=== PATIENT | male | born 1955 | race Caucasian/White ===

== ENCOUNTER → 2019-07-14 09:46 | Outpatient (BNVA) | payer MEDICARE, OTHER, SELFPAY | PROVIDERS: Family Provider Nurse Practitioner Family; PCP Nurse Practitioner Family; Visit Provider Nurse Practitioner Family | DX: I10 Essential (primary) hypertension (principal); E78.5 Hyperlipidemia, unspecified; Z51.81 Encounter for therapeutic drug level monitoring | CPT/HCPCS: 80053; 80061 ==

== ENCOUNTER → 2020-02-02 10:25 | Outpatient (BNVA) | payer MEDICARE, OTHER, SELFPAY | PROVIDERS: Family Provider Nurse Practitioner Family; PCP Nurse Practitioner Family; Visit Provider Nurse Practitioner Family | DX: I10 Essential (primary) hypertension (principal); E78.5 Hyperlipidemia, unspecified; Z87.39 Personal history of other diseases of the musculoskeletal system and connective tissue; Z79.899 Other long term (current) drug therapy | CPT/HCPCS: 80053; 80061 ==

== ENCOUNTER → 2020-02-17 11:19 | Outpatient (BNVA) | payer MEDICARE, OTHER, SELFPAY | PROVIDERS: Family Provider Nurse Practitioner Family; PCP Nurse Practitioner Family; Visit Provider Nurse Practitioner Family | DX: R10.11 Right upper quadrant pain (principal) | CPT/HCPCS: 81000 ==

== ENCOUNTER 2020-02-25 11:54 | Outpatient (CLI) | payer MEDICARE, OTHER, SELFPAY ==
[2020-02-25] MEDS: iohexol 300 mg/mL 100 mL Btl IV (13:25)
[2020-02-25] MEDS: iohexol 300 mg/mL 50 mL Btl PO (13:26)
--- NOTE | 2020-02-25 13:30 | CT_ITS ---
WS: [id number] CT ABDOMEN CONTRAST TECHNIQUE: Contrast enhanced CT of the abdomen with coronal and sagittal reformatted images. CLINICAL INFORMATION: Abdominal pain COMPARISON: None. DLP: 725.[address] scans at [facility] use at least one of these dose optimization techniques: automat ed exposure control; mA and/or kV adjustment per patient size (includes targeted exams where dose is matched to clinical indication); or iterative reconstruction. FINDINGS: Mild diffuse fatty infiltration of the liver. Multiple low-attenuation lesions compatible with hepati c cysts. Some are too small to characterize. Additional cavernous hemangioma in the tip of the right hepatic lobe. Normal portal vein and slight splenic vein. Normal spleen. Splenic granulomas. Normal p ancreas. Gallbladder is contracted with wall enhancement.Recommend further evaluation with ultrasound. Promine nt common bile duct measuring 8 mm. Peripheral enhancement along the proximal common bile duct. Recom mend further evaluation with MRCP to assess for choledocholithiasis or bile duct lesion. Normal GE junction. Lung bases are well aerated. Adrenal glands are normal. Normal renal parenchymal enhancement. No hydronephrosis. Normal caliber abdominal aorta. Aortic calcification. Tiny fat-conta ining umbilical hernia. CT/CT abdomen w con* [id number] IMPRESSION: 1. Multiple low-attenuation lesions in both hepatic lobes most consistent with hepatic cysts. Additional cavernous hemangioma in the tip of the right hepatic lobe. Some lesions are too small to characterize. 2. Gallbladder is contracted with wall enhancement. Recommend further evaluati on with ultrasound. 3. Mild prominence of the common bile duct measuring 8 and enhancement along t he proximal common bile duct. Recommend further evaluation with MRCP to assess for choledocholithiasis or obstructing lesion. 4. Normal caliber abdominal aorta. 5. No other significant findings.
== END 2020-02-25 11:55 | disposition home or self-care (01) ==
LOC: RADWPI 12:02
PROVIDERS: Family Provider Nurse Practitioner Family; PCP Nurse Practitioner Family; Visit Provider Nurse Practitioner Family
DX: R10.11 Right upper quadrant pain (principal); K76.9 Liver disease, unspecified; K76.89 Other specified diseases of liver; D18.09 Hemangioma of other sites
CPT/HCPCS: 74160; Q9967

== ENCOUNTER 2020-03-12 06:59 | Outpatient (CLI) | payer MEDICARE, OTHER, SELFPAY ==
--- NOTE | 2020-03-12 07:15 | US_ITS ---
WS: [id number] RIGHT UPPER QUADRANT ULTRASOUND HISTORY: Abnormal gallbladder on CT. COMPARISON: 02/25/2020 Liver: 15.2 cm in length. Normal size liver. Previously described hepatic cysts were much better visu alized by CT. Liver hemangioma is not seen by ultrasound. No bile duct dilatation or solid mass. Gallbladder: Slightly contracted. Mild gallbladder wall thickening without pericholecystic fluid. No stones. Gallbladder wall 4 mm. CBD: 0.6 cm Pancreas: Normal size and echogenicity. Right kidney: 9.7 cm in length. Normal size and echogenicity. No hydronephrosis or mass. Aorta and IVC: Unremarkable abdominal aorta and IVC. No ascites. US/US gall bladder [id number] IMPRESSION: 1. Mild diffuse thickening of the gallbladder wall without edema or cholelithi asis. May be on the basis of hepatocellular disease. 2. No bile duct dilatation.
== END 2020-03-12 07:00 | disposition home or self-care (01) ==
PROVIDERS: PCP Nurse Practitioner Family; Visit Provider Nurse Practitioner Family
DX: K82.8 Other specified diseases of gallbladder (principal)
CPT/HCPCS: 76705

== ENCOUNTER → 2021-01-07 08:26 | Outpatient (BNVA) | payer MEDICARE, OTHER, SELFPAY | PROVIDERS: PCP Nurse Practitioner Family; Visit Provider Nurse Practitioner Family | DX: I10 Essential (primary) hypertension (principal); Z12.5 Encounter for screening for malignant neoplasm of prostate; E78.5 Hyperlipidemia, unspecified; K21.9 Gastro-esophageal reflux disease without esophagitis; Z87.39 Personal history of other diseases of the musculoskeletal system and connective tissue | CPT/HCPCS: 80053; 80061; G0103 ==

== ENCOUNTER → 2021-10-06 00:01 | Outpatient (BNVA) | payer MEDICARE, OTHER, SELFPAY | PROVIDERS: PCP Nurse Practitioner Family; Visit Provider Nurse Practitioner Family | DX: I10 Essential (primary) hypertension (principal); Z86.79 Personal history of other diseases of the circulatory system; E78.5 Hyperlipidemia, unspecified; K21.9 Gastro-esophageal reflux disease without esophagitis; Z12.5 Encounter for screening for malignant neoplasm of prostate | CPT/HCPCS: 80053; 80061 ==

== ENCOUNTER → 2021-11-18 10:06 | Outpatient (BNVA) | payer MEDICARE, OTHER, SELFPAY | PROVIDERS: PCP Nurse Practitioner Family; Visit Provider Nurse Practitioner Family | DX: I10 Essential (primary) hypertension (principal); E78.5 Hyperlipidemia, unspecified | CPT/HCPCS: 80061; 80076 ==

== ENCOUNTER → 2022-05-15 08:21 | Outpatient (BNVA) | payer MEDICARE, OTHER, SELFPAY | PROVIDERS: PCP Nurse Practitioner Family; Visit Provider Nurse Practitioner Family | DX: I10 Essential (primary) hypertension (principal); E78.5 Hyperlipidemia, unspecified | CPT/HCPCS: 80053; 80061 ==

== ENCOUNTER → 2022-11-03 08:26 | Outpatient (BNVA) | payer MEDICARE, OTHER, SELFPAY | PROVIDERS: PCP Nurse Practitioner Family; Visit Provider Nurse Practitioner Family | DX: Z12.5 Encounter for screening for malignant neoplasm of prostate (principal); I10 Essential (primary) hypertension | CPT/HCPCS: 80053; 80061; G0103 ==

== ENCOUNTER → 2023-08-15 10:20 | Outpatient (BNVA) | payer MEDICARE, OTHER, SELFPAY | PROVIDERS: PCP Nurse Practitioner Family; Visit Provider Nurse Practitioner Family | DX: E78.2 Mixed hyperlipidemia (principal); R25.2 Cramp and spasm; I10 Essential (primary) hypertension | CPT/HCPCS: 80053; 80061 ==

== ENCOUNTER → 2024-03-17 10:39 | Outpatient (BNVA) | payer MEDICARE, OTHER, SELFPAY | PROVIDERS: PCP Nurse Practitioner Family; Visit Provider Nurse Practitioner Family | DX: I10 Essential (primary) hypertension; Z12.5 Encounter for screening for malignant neoplasm of prostate; R35.0 Frequency of micturition | CPT/HCPCS: 80053; 80061; 81000; 87086; G0103 ==

== ENCOUNTER 2024-03-21 09:26 | Inpatient (IN) | payer MEDICARE, OTHER, SELFPAY ==
[2024-03-21] VITALS (12 sets, daily range): BP systolic 143–164; BP diastolic 83–95; PULSE 84–107; RESP 15–16; TEMP 36.4–36.9; O2SAT 92–98; BMI 25.5
--- NOTE | 2024-03-21 10:11 | ED_ITS ---
HPI - Abdominal Pain 2 General: Chief Complaint: Abdominal Pain Stated Complaint: gallbladder- [facility] [place] sending over Time Seen by Provider: 03/21/24 09:32 History of Present Illness: 68-year-old male presents emergency room with complaints of epigastric discomfort radiating to his back. States began about a week ago he has not noticed anything that exacerbates or relieves it he was seen in [place] ER had a CT done the following day he had a gallbladder ultrasound done. He denies any hematemesis coffee-ground emesis denies any bilious vomit but states been constipated lately no acholic stools. No hematochezia or melena. No chest pain or shortness of breath Associated Symptoms: Reports constipation, GI cramping and nausea; Denies chills, dysuria, fever(s) and vomiting Related Data Home Medications Medication Instructions Recorded Confirmed amlodipine 5 mg tablet 5 mg PO DAILY 03/21/24 03/21/24 cyclobenzaprine 10 mg tablet 10 mg PO BEDTIME 03/21/24 03/21/24 ezetimibe 10 mg-simvastatin 20 mg 1 tab PO DAILY 03/21/24 03/21/24 tablet metoprolol tartrate 50 mg tablet 50 mg PO BID 03/21/24 03/21/24 omeprazole 20 mg capsule,delayed 20 mg PO DAILY 03/21/24 03/21/24 release Allergies Allergy/AdvReac Type Severity Reaction Status Date / Time No Known Allergies Allergy Verified 03/21/24 10:01 Review of Systems 2 Const: Denies: fever(s) or chills Card: Denies: chest pain Resp: Denies: dyspnea GI: Reports: abdominal pain, nausea, constipation and GI cramping; Denies: vomiting : Denies: dysuria, urinary frequency or urinary urgency Musc: Denies: neck pain or back pain Skin/Breast: Denies: rash PFSH ED 2 PFSH: Medical History Hx of supraventricular tachycardia Hx of spinal stenosis Hyperlipidemia HTN (hypertension), benign Surgical History Hx of appendectomy Hx of hernia repair Social History Smoking and tobacco/nicotine status: never used tobacco/nicotine Alcohol intake: never Substance/Drug Use: never Adopted: No Caregiver/support person: No Lives independently: No Household members: spouse Housing: House Marital status: Do you think of yourself as: Straight/Heterosexual Current gender identity: Male Physical Exam 2 Const: GENERAL APPEARANCE: cooperative ORIENTATION/CONSCIOUSNESS: Yes awake, Yes oriented to person, Yes oriented to place and Yes oriented to time HENMT: COMMON NORMALS: normocephalic, atraumatic and hearing grossly normal bilaterally HEAD & SCALP: normocephalic and atraumatic Resp: COMMON NORMALS: normal respiratory effort, No retractions, No use of accessory muscles and clear to auscultation bilaterally AUSCULTATION: clear to auscultation bilaterally Cardio: COMMON NORMALS: regular rate, regular rhythm and No murmurs present (Cardio) RATE: regular rate RHYTHM: regular rhythm GI: COMMON NORMALS: No hepatosplenomegaly present AUSCULTATION: Yes normoactive bowel sounds PALPATION: Yes Tenderness to palpation present (GI) (Epigastric), No Guarding due to palpation present (GI) and Yes No hepatosplenomegaly present Extremity: COMMON NORMALS: normal to inspection, capillary refill normal, no clubbing, cyanosis or edema, no calf tenderness and no pedal edema Neuro: SENSORIUM/ORIENTATION: Yes oriented to person, Yes oriented to place and Yes oriented to time Skin: COMMON NORMALS: no rashes or lesions noted GENERAL SKIN EXAM: no rashes or lesions noted Course 2 Vital Signs: Vital signs: Vital Signs Temperature 97.5 F L 03/21/24 16:00 Pulse Rate 107 H 03/21/24 16:00 Respiratory Rate 16 03/21/24 16:37 Blood Pressure 160/95 03/21/24 16:00 Pulse Oximetry 97 03/21/24 16:00 Oxygen Delivery Me thod Room Air 03/21/24 09:53 MDM - Abdominal Pain Medical Decision Making Patient does have cholelithiasis. There is some dilation of the common bile duct and identified specific stone. Discussed with radiology also discussed with Dr. Hanson from surgery. Dr. Hanson believes we can admit the patient restarted on Zosyn keep n.p.o. pain and nausea medications as needed IV fluids we will do an MRCP in the morning. We are not able to do an MRCP at the moment. He has been given Zosyn. Labs and imaging reviewed admit to Dr. Padilla for the hospitalist service Dr. Hanson to consult Medical Records I reviewed the patient's medical records. Lab Data I reviewed the patient's lab results. 03/21/24 10:07 03/21/24 10:07 Labs/Radiology: Radiology Impressions Gallbladder Ultrasound 03/21/24 11:27 IMPRESSION: 1. Cholelithiasis with gallbladder wall thickening. Several stones are near the gallbladder neck and could be entrapped. Suspect mild acute cholecystitis. 2. Dilated common bile duct at 1.2 cm. The entire common bile duct is not visualized but highly suspicious for choledocholithiasis. Recommend follow-up with MRCP. Laboratory Results WBC 12.81 10^3/uL (3.29-11.43) H 03/21/24 10:07 RBC 5.37 10^6/uL (3.85-5.65) 03/21/24 10:07 Hgb 16.40 g/dL (11.27-16.99) 03/21/24 10:07 Hct 45.7 % (37-53) 03/21/24 10:07 MCV 85.1 fl (82-101) 03/21/24 10:07 MCH 30.5 pg (27-33) 03/21/24 10:07 MCHC 35.9 g/dL (30-55) 03/21/24 10:07 RDW 12.7 % (12.1-15.1) 03/21/24 10:07 Plt Count 191 10^3/cmm (157-399) 03/21/24 10:07 MPV 8.4 fL (7.4-10.4) 03/21/24 10:07 Neut % (Auto) 85.1 % 03/21/24 10:07 Lymph % (Auto) 8.2 % 03/21/24 10:07 Greer % (Auto) 5.4 % 03/21/24 10:07 Eos % (Auto) 0.5 % 03/21/24 10:07 Baso % (Auto) 0.2 % 03/21/24 10:07 Neut # (Auto) 10.91 10^3/uL (1.8-7.7) H 03/21/24 10:07 Lymph # (Auto) 1.1 10^3/uL (0.8-4.8) 03/21/24 10:07 Greer # (Auto) 0.7 10^3/uL (0.2-0.9) 03/21/24 10:07 Eos # (Auto) 0.1 10^3/uL (0.0-0.8) 03/21/24 10:07 Baso # (Auto) 0.0 10^3/uL (0.0-0.1) 03/21/24 10:07 Nucleated RBC % (auto) 0 % 03/21/24 10:07 Nucleated RBCs # 0.0 /100WBC 03/21/24 10:07 Sodium 131 mmol/L (136-145) L 03/21/24 10:07 Potassium 4.1 mmol/L (3.5-5.1) 03/21/24 10:07 Chloride 94 mmol/L (98-107) L 03/21/24 10:07 Carbon Dioxide 24 mmol/L (22-29) 03/21/24 10:07 Anion Gap 17.1 (5-19) 03/21/24 10:07 BUN 9 mg/dL (8-23) 03/21/24 10:07 Creatinine 0.9 mg/dL (0.7-1.2) 03/21/24 10:07 GFR Calculation 83.4 mL/min (90-130) L 03/21/24 10:07 Glucose 165 mg/dL (65-115) H 03/21/24 10:07 Estimat Average Glucose 148 03/21/24 10:07 Hemoglobin A1c 6.8 % (4.0-6.0) H 03/21/24 10:07 Calculated Osmolality 274 mOsm/kg (285-295) L 03/21/24 10:07 Calcium 9.4 mg/dL (8.5-10.5) 03/21/24 10:07 Total Bilirubin 1.1 mg/dL (0.15-1.2) 03/21/24 10:07 GGT 182 U/L (8-61) H 03/21/24 10:07 AST 32 U/L (0-40) 03/21/24 10:07 ALT 53 U/L (0-41) H 03/21/24 10:07 Alkaline Phosphatase 132 U/L (40-130) H 03/21/24 10:07 C-Reactive Protein 98.9 mg/L (0.0-4.9) H 03/21/24 10:07 Total Protein 8.0 g/dL (6.6-8.7) 03/21/24 10:07 Albumin 4.0 g/dL (3.5-5.2) 03/21/24 10:07 Globulin 4.0 g/dL (1.3-4.6) 03/21/24 10:07 Lipase 35 U/L (13-60) 03/21/24 10:07 Lipase 36 U/L (13-60) 03/21/24 10:07 Procalcitonin 0.35 ng/mL (0-0.5) 03/21/24 10:07 TSH 1.90 uIU/mL (0.27-4.20) 03/21/24 10:07 All radiology interpretation(s) finalized by discharge Discharge Plan Discharge Patient Disposition: Admitted As Inpatient Admit Provider: Real Jasmine Clinical Impression: Acute cholecystitis, Cholelithiasis Condition: Stable Coding Level of Care Code ED Job Foreman for Selene Shelton
[2024-03-21 10:31] LABS: Basophils % 0.2 %; Eosinophils # 0.1 10^3/uL (0.0-0.8); Eosinophils % 0.5 %; Hematocrit 45.7 % (37-53); Lymphocytes # 1.1 10^3/uL (0.8-4.8); Lymphocytes % 8.2 %; Mean Corpuscular HGB Conc 35.9 g/dL (30-55); Mean Corpuscular Hemoglobin 30.5 pg (27-33); Mean Corpuscular Volume 85.1 fl (82-101); Mean Platelet Volume 8.4 fL (7.4-10.4); Monocytes # 0.7 10^3/uL (0.2-0.9); Monocytes % 5.4 %; Neutrophils # 10.91 10^3/uL (1.8-7.7); Neutrophils % 85.1 %; Nucleated Red Blood Cells % 0 %; Platelet Count 191 10^3/cmm (157-399); Red Blood Count 5.37 10^6/uL (3.85-5.65); Red Cell Distribution Width 12.7 % (12.1-15.1); White Blood Count 12.81 10^3/uL (3.29-11.43)
[2024-03-21 10:47] LABS: Alanine Aminotransferase 53 U/L (0-41); Alkaline Phosphatase 132 U/L (40-130); Anion Gap 17.1 (5-19); Aspartate Amino Transferase 32 U/L (0-40); Blood Urea Nitrogen 9 mg/dL (8-23); Calcium 9.4 mg/dL (8.5-10.5); Carbon Dioxide 24 mmol/L (22-29); Chloride 94 mmol/L (98-107); Creatinine Clr Calc Pharmacy 79.7313; Glomerular Filtration Rate 83.4 mL/min (90-130); Glucose 165 mg/dL (65-115); Lipase 35 U/L (13-60); Osmolality Calculated 274 mOsm/kg (285-295); Potassium 4.1 mmol/L (3.5-5.1); Sodium 131 mmol/L (136-145); Total Bilirubin 1.1 mg/dL (0.15-1.2)
--- NOTE | 2024-03-21 11:27 | US_ITS ---
WS: [id number] RIGHT UPPER QUADRANT ULTRASOUND HISTORY: cholelithiasis, biliary colic COMPARISON: 03/12/2020 and 03/20/2024 Liver: 16.3 cm in length. Normal size liver and echogenicity. No bile duct dilatation or mass. Portal Vein: Normal hepatopetal flow with monophasic waveform. Gallbladder: Gallbladder is normally distended. No gallbladder hydrops. There is mild diffuse wall th ickening and a few small stones within the gallbladder. Some of these stones are near the gallbladder neck. CBD: 1.2 cm Pancreas: Completely obscured by bowel gas. Right kidney: 10.1 cm in length. Normal size and echogenicity. No hydronephrosis or mass. Aorta and IVC: Unremarkable abdominal aorta and IVC. No ascites. US/US gall bladder [id number] IMPRESSION: 1. Cholelithiasis with gallbladder wall thickening. Several stones are near th e gallbladder neck and could be entrapped. Suspect mild acute cholecystitis. 2. Dilated common bile duct at 1.2 cm. The entire common bile duct is not visu alized but highly suspicious for choledocholithiasis. Recommend follow-up with MRCP.
[2024-03-21] MEDS: sodium chloride 0.9% 500 ML 999 ML IV (12:30)
[2024-03-21] MEDS: piperacillin-tazobactam 3.375 GM in sodium chloride 0.9% (plus) 50 ML IV ×3 (13:01→23:51)
--- NOTE | 2024-03-21 13:52 | PC.NURSE ---
unsuccessful straight cath, bladder scan shows 0mL
[2024-03-21] MEDS: sodium chloride 0.9% 1,000 ML 999 ML IV (14:27)
--- NOTE | 2024-03-21 16:04 | P.HP_ITS ---
Providers/Chief Complaint 2 Admitting Physician: Real Jasmine MD Primary Care Provider: Liz Daigle, SAUD Chief Complaint: gallbladder- [facility] [place] sending over History of Present Illness Parag Gilliam is a 68 year old male with a past medical history of SVT, history of choledocholithiasis, who presents [facility] for a week history of right upper quadrant pain, fevers, nausea, decreased appetite. When I examined patient, he was on the medical floors, being wheeled up by nursing staff, able to get up out of wheelchair to the bed. Patient tells me that back in 2019, he developed right upper quadrant pain, he got sick, develop fevers, he was told that he had a stone in his biliary tract, he became jaundiced he tells me but it took him so long to follow-up with the surgeon the stone eventually passed, so he never really followed up with general surgery. He tells me that for the last week, he has developed right upper quadrant pain, nausea, fevers, fatigue, malaise, no diarrhea. Increased abdominal distention, increased right upper quadrant pain. He was seen at an outside facility had a CT scan and eventually a right upper quadrant ultrasound and was told that he had a gallbladder infection. However his follow-up with general surgery was April 01, and he could not wait due to persistent right upper quadrant pain, decreased urine output, decreased oral intake, fevers, chills, fatigue, malaise. I had a detailed discussion with patient about his gallbladder ultrasound, findings of gallbladder wall thickening, evidence of cholecystitis and that there are several stones to the gallbladder neck that could be entrapped, also dilated common bile duct at 1.2 cm, common bile duct is not visualized but highly suspicious for choledocholithiasis. Recommendation for MRCP however MRCP cannot be done until tomorrow. Did discuss with him that if he does indeed have a stone in the biliary tract, he is a high risk of developing acute ascending cholangitis, which is associate with increased high risk of morbidity and mortality and he would need urgent transfer for ERCP procedure. Unfortunately we do not have those capabilities here at [facility], nor do we have radiology over the weekend to put in a cholecystostomy tube. Thus we would have to urgently transfer him to a tertiary level center, pending beds, pending availability, for ERCP procedure if he does have acute ascending cholangitis or stone stuck in the biliary tract, morbidity and mortality discussed, this is a surgical emergency if indeed this is the case. He voiced understanding, all questions answered, plan is to continue IV antibiotics, IV fluids, await surgery's recommendation, MRCP ordered stat, will monitor him very closely serial abdominal exams monitor for fevers, ordered blood cultures, keep n.p.o., IV fluids. Review of Systems 2 Const: Reports: fever(s) Card: Denies: chest pain Resp: Denies: dyspnea GI: Reports: abdominal pain and nausea Neuro: Denies: headache(s) Medications/Allergies Home Medications Medication Instructions Recorded Confirmed Last Taken Type amlodipine 5 mg tablet 5 mg PO DAILY 03/21/24 03/21/24 03/20/24 History cyclobenzaprine 10 mg tablet 10 mg PO BEDTIME 03/21/24 03/21/24 03/20/24 History ezetimibe 10 mg-simvastatin 20 mg 1 tab PO DAILY 03/21/24 03/21/24 03/20/24 History tablet metoprolol tartrate 50 mg tablet 50 mg PO BID 03/21/24 03/21/24 03/21/24 History omeprazole 20 mg capsule,delayed 20 mg PO DAILY 03/21/24 03/21/24 03/20/24 History release Allergies Allergy/AdvReac Type Severity Reaction Status Date / Time No Known Allergies Allergy Verified 03/21/24 10:01 PFSH Acute 2 PFSH: Medical History Hx of supraventricular tachycardia Hx of spinal stenosis Hyperlipidemia HTN (hypertension), benign Surgical History Hx of appendectomy Hx of hernia repair Social History Smoking and tobacco/nicotine status: never used tobacco/nicotine Alcohol intake: never Substance/Drug Use: never Adopted: No Caregiver/support person: No Lives independently: No Household members: spouse Housing: House Marital status: Do you think of yourself as: Straight/Heterosexual Current gender identity: Male Vitals/I&O/Wt Last Vital Signs Temp 98.5 F 03/21/24 09:53 Pulse 101 H 03/21/24 15:33 Resp 16 03/21/24 09:53 BP 160/85 03/21/24 15:33 Pulse Ox 98 03/21/24 15:33 O2 Del Method Room Air 03/21/24 09:53 03/21/24 03/21/24 03/21/24 06:59 14:59 22:59 Intake Total 550 / 550 1000 / 1550 Balance 550 / 550 1000 / 1550 Weight last 48 hrs Weight 78.471 kg Physical Exam 2 Const: COMMON NORMALS: no acute distress and patient oriented x3 Eye: COMMON NORMALS: Equal, round and reactive pupils present and EOMs intact bilaterally Resp: COMMON NORMALS: normal respiratory effort, No retractions, No use of accessory muscles and clear to auscultation bilaterally AUSCULTATION: clear to auscultation bilaterally Cardio: COMMON NORMALS: regular rate, regular rhythm, S1 normal heart sound present and S2 normal heart sound present RATE: regular rate RHYTHM: r egular rhythm HEART SOUNDS: S1 normal heart sound present and S2 normal heart sound present GI: OTHER: Abdomen soft, distended, has right upper quadrant tenderness to palpation, no guarding, no rebound, no rigidity, good bowel sounds, no jaundice present, no scleral icterus Extremity: COMMON NORMALS: no calf tenderness and no pedal edema Neuro: COMMON NORMALS: patient oriented x3, CN's II-XII intact bilaterally and moves all extremities Psych: COMMON NORMALS: mental status grossly normal Data 03/21/24 10:07 03/21/24 10:07 A&P Assessment and plan (1) Acute cholecystitis: (2) Choledocholithiasis: Plan / gall bladder [id number] IMPRESSION: 1. Cholelithiasis with gallbladder wall thickening. Several stones are near the gallbladder neck and could be entrapped. Suspect mild acute cholecystitis. 2. Dilated common bile duct at 1.2 cm. The entire common bile duct is not visualized but highly suspicious for choledocholithiasis. Recommend follow-up with MRCP. ? Concerns for acute cholecystitis with choledocholithiasis ? With concerns for possible biliary obstruction given CBD at 1.2 cm ? Plan ? Blood cultures ? CRP, Pro-Willian, lactic acid, GGT ? Serial abdominal exams ? Normal saline at 125 cc an hour ? Zosyn ? Morphine for pain ? Zofran and Reglan for nausea ? Stat MRCP ordered ? Continue home metoprolol ? General Surgery consulted ? Lovenox for DVT prophylaxis ? Full code Attestations 2 Medical Necessity Statement*: Patient requires hospitalization, inpatient, greater than 2 midnights, for acute cholecystitis, choledocholithiasis Diagnoses Acute cholecystitis K81.0 Choledocholithiasis K80.50
[2024-03-21] MEDS: sodium chloride 0.9% 1,000 ML 125 ML IV (16:30)
[2024-03-21] MEDS: enoxaparin 40 mg/0.4 mL Syringe SUBCUT (16:36)
[2024-03-21] MEDS: pantoprazole 40 mg SDV IVP (16:36)
[2024-03-21] MEDS: ondansetron 2 mg/ML SDV 2 mL 4 MG IVP (16:37)
[2024-03-21] MEDS: metoprolol tartrate 50 mg Tablet PO (16:37)
[2024-03-21] MEDS: morphine 4 mg/mL SDV 1 mL IVP ×2 (16:37→20:21)
[2024-03-21 16:50] LABS: Estmated Average Glucose 148; Hemoglobin A1C 6.8 % (4.0-6.0)
[2024-03-21 16:52] LABS: Gamma Glutamyl Transferase 182 U/L (8-61)
[2024-03-21 17:02] LABS: Procalcitonin 0.35 ng/mL (0-0.5)
[2024-03-21 17:13] LABS: C Reactive Protein 98.9 mg/L (0.0-4.9); Lipase 36 U/L (13-60)
[2024-03-21 17:31] LABS: Lactic Sepsis W/Reflex 1.4 mmol/L (0.5-2.2)
[2024-03-21] MEDS: polyethylene glycol 3350 Pkt 17 gm PO (20:22)
[2024-03-22] VITALS (13 sets, daily range): BP systolic 121–162; BP diastolic 72–80; PULSE 92–110; RESP 14–16; TEMP 36.6–37; O2SAT 94–96
[2024-03-22] MEDS: morphine 4 mg/mL SDV 1 mL IVP ×5 (00:34→18:13)
[2024-03-22] MEDS: sodium chloride 0.9% 1,000 ML 125 ML IV ×3 (00:34→17:14)
[2024-03-22] MEDS: pantoprazole 40 mg SDV IVP ×2 (04:01→17:14)
[2024-03-22 05:13] LABS: Basophils % 0.1 %; Eosinophils % 0.4 %; Hematocrit 41.6 % (37-53); Lymphocytes # 1.2 10^3/uL (0.8-4.8); Lymphocytes % 12.4 %; Mean Corpuscular HGB Conc 33.7 g/dL (30-55); Mean Corpuscular Hemoglobin 29.7 pg (27-33); Mean Corpuscular Volume 88.1 fl (82-101); Mean Platelet Volume 8.6 fL (7.4-10.4); Monocytes # 0.5 10^3/uL (0.2-0.9); Monocytes % 5.7 %; Neutrophils # 7.65 10^3/uL (1.8-7.7); Neutrophils % 80.8 %; Nucleated Red Blood Cells % 0 %; Platelet Count 151 10^3/cmm (157-399); Red Blood Count 4.72 10^6/uL (3.85-5.65); Red Cell Distribution Width 12.9 % (12.1-15.1); White Blood Count 9.48 10^3/uL (3.29-11.43)
[2024-03-22 05:32] LABS: Alanine Aminotransferase 46 U/L (0-41); Albumin Level 3.2 g/dL (3.5-5.2); Alkaline Phosphatase 103 U/L (40-130); Anion Gap 16.6 (5-19); Aspartate Amino Transferase 26 U/L (0-40); Blood Urea Nitrogen 9 mg/dL (8-23); C Reactive Protein 189.8 mg/L (0.0-4.9); Calcium 8.3 mg/dL (8.5-10.5); Carbon Dioxide 19 mmol/L (22-29); Chloride 97 mmol/L (98-107); Creatinine Clr Calc Pharmacy 91.3296; Globulin 3.3 g/dL (1.3-4.6); Glomerular Filtration Rate 111.5 mL/min (90-130); Glucose 117 mg/dL (65-115); Osmolality Calculated 268 mOsm/kg (285-295); Potassium 3.6 mmol/L (3.5-5.1); Sodium 129 mmol/L (136-145); Total Protein 6.5 g/dL (6.6-8.7)
[2024-03-22 05:35] LABS: Procalcitonin 0.49 ng/mL (0-0.5)
[2024-03-22] MEDS: piperacillin-tazobactam 3.375 GM in sodium chloride 0.9% (plus) 50 ML IV ×2 (08:49→17:15)
[2024-03-22] MEDS: metoprolol tartrate 50 mg Tablet PO ×2 (08:49→17:15)
--- NOTE | 2024-03-22 09:00 | MRR_ITS ---
PROCEDURE INFORMATION: Exam: MR Abdomen Without Contrast, Biliary System Exam date and time: 03/22/2024 8:00 AM Age: 68 years old Clinical indication: Abdominal tenderness; Additional info: Choledocholithiasis TECHNIQUE: Imaging protocol: MR of the abdomen without contrast. Exam focused on the biliary system and pancreatic ducts. Routine 3D-MRCP images were acquired and processed without radiologist supervision. COMPARISON: CT abdomen pelvis w con* [id number] 03/20/2024 2:42 AM FINDINGS: Liver: At least 3 foci of high T2 weighted signal in segment 2 of the liver measuring up to 1.1 cm, not fully characterized without IV contrast. Gallbladder and biliary ducts: Cholelithiasis with at least 3 gallbladder stones in the gallbladder neck measuring up to 7 mm. Mild dilatation of the CBD measuring 1.1 cm and mild dilatation of the central intrahepatic, more in the left hepatic lobe. No filling defects in the CBD to suggest CBD stone. Pancreas: Unremarkable. No ductal dilation. Kidneys: Bilateral perinephric fat stranding. No hydronephrosis on either side. Intraperitoneal space: No fluid collection. Urinary bladder: Over distended bladder. MR/MR MRCP [id number] IMPRESSION: 1. Cholelithiasis with gallbladder neck stones. 2. Mild dilatation of the extrahepatic biliary tree and to a lesser extent left hepatic lobe biliary ducts but no filling defects suggest CBD stones. Findings can be related to recent passage of CBD stone or ampullary dysfunction. 3. T2 hyperintense left hepatic lesions, not fully characterized without contrast.
--- NOTE | 2024-03-22 11:21 | P.ANESASSM_ITS ---
Pre-Anesthetic Assessment Height/Weight: Height 5 ft 9 in Weight 180 lb 6.4 oz Temp Pulse Resp BP Pulse Ox O2 Del Method 97.8 F 110 H 16 143/76 95 Room Air 03/22/24 08:00 03/22/24 08:00 03/22/24 08:51 03/22/24 08:00 03/22/24 08:00 03/22/24 04:00 Preop Diagnosis: Choledocholithiasis Operation Date: 03/23/24 08:10 Proposed Procedures p Laparoscopic Cholecystectomy(Right) - Kash Hanson DO Familial anesthetic complications: None Was Beta Chadwick taken within 24 hours: Yes Was Clonidine taken within 24 hours: N/A Last Intake: 18:00 Social Alcohol and No alcohol Exam alert, oriented x 3, clear to auscultation bilaterally and regular rate & rhythm Airway Submandibular: within normal limits Cervical ROM: within normal limits Mallampati: Class I Dentition: other (Multiple missing front teeth, denies any loose teeth) Anesthetic Plan ASA status: 3 Anesthesia: General Other: No prior issues with anesthesia NPO since yesterday evening History of hypertension on amlodipine and metoprolol. BP this a.m. 152/92 History of SVT, controlled on metoprolol. States he takes this in the evening and morning. Has not taken morning dose. We will plan to give him a beta- chadwick GERD on omeprazole Denies any pulmonary issues METs greater than 4 Choledocholithiasis noted on imaging Plan for GETA Medications/Allergies Home Medications Medication Instructions Recorded Confirmed Last Taken Type amlodipine 5 mg tablet 5 mg PO DAILY 03/21/24 03/21/24 03/20/24 History cyclobenzaprine 10 mg tablet 10 mg PO BEDTIME 03/21/24 03/21/24 03/20/24 History ezetimibe 10 mg-simvastatin 20 mg 1 tab PO DAILY 03/21/24 03/21/24 03/20/24 History tablet metoprolol tartrate 50 mg tablet 50 mg PO BID 03/21/24 03/21/24 03/21/24 History omeprazole 20 mg capsule,delayed 20 mg PO DAILY 03/21/24 03/21/24 03/20/24 History release Allergies Allergy/AdvReac Type Severity Reaction Status Date / Time No Known Allergies Allergy Verified 03/21/24 10:01 Current Medications Generic Name Dose Route Start Last Admin Trade Name Siva PRN Reason Stop Dose Admin Enoxaparin Sodium 40 mg 03/21/24 16:00 03/21/24 16:36 Enoxaparin 40 Mg/0.4 Ml Syringe SUBCUT 40 mg Q24H GREGG Administration Sodium Chloride 1,000 mls @ 125 mls/hr 03/21/24 16:00 03/22/24 08:49 Sodium Chloride 0.9% IV 125 mls/hr .Q8H GREGG Administration Piperacillin Sod/Tazobactam 50 mls @ 12.5 mls/hr 03/21/24 16:15 03/22/24 08:49 Sod 3.375 gm/ Sodium Chloride IV 12.5 mls/hr Q8H GREGG Administration Protocol Metoprolol Tartrate 50 mg 03/21/24 18:00 03/22/24 08:49 Metoprolol Tartrate 50 Mg Tablet PO 50 mg BID GREGG Administration Morphine Sulfate 4 mg 03/21/24 15:43 03/22/24 08:51 Morphine 4 Mg/Ml Sdv 1 Ml IVP 4 mg Q4H PRN Administration SEVERE PAIN Ondansetron HCl 4 mg 03/21/24 15:43 03/21/24 16:37 Ondansetron 2 Mg/Ml Sdv 2 Ml IVP 4 mg Q6H PRN Administration NAUSEA AND VOMITING Pantoprazole Sodium 40 mg 03/21/24 16:00 03/22/24 04:01 Pantoprazole 40 Mg Sdv IVP 40 mg Q12H GREGG Administration Polyethylene Glycol 17 gm 03/21/24 19:55 03/22/24 08:50 Polyethylene Glycol 3350 Pkt 17 Gm PO Not Given BID GREGG PFSH Anesthesia Medical History Hx of supraventricular tachycardia Hx of spinal stenosis Hyperlipidemia HTN (hypertension), benign Surgical History Hx of appendectomy Hx of hernia repair Social History Smoking and tobacco/nicotine status: never used tobacco/nicotine Alcohol intake: never Substance/Drug Use: never Adopted: No Caregiver/support person: No Lives independently: No Household members: spouse Housing: House Marital status: Do you think of yourself as: Straight/Heterosexual Current gender identity: Male Data Anesthesia 03/23/24 03:59 03/23/24 03:59 Short CBC 03/21/24 03/22/24 Range/Units 10:07 04:57 WBC 12.81 H 9.48 (3.29-11.43) 10^3/uL Hgb 16.40 14.00 (11.27-16.99) g/dL Hct 45.7 41.6 (37-53) % MCV 85.1 88.1 (82-101) fl Plt Count 191 151 L (157-399) 10^3/cmm Neut % (Auto) 85.1 80.8 % Neut # (Auto) 10.91 H 7.65 (1.8-7.7) 10^3/uL BMP 03/21/24 03/22/24 10:07 04:57 Sodium 131 L 129 L Potassium 4.1 3.6 Chloride 94 L 97 L Carbon Dioxide 24 19 L BUN 9 9 Creatinine 0.9 0.7 Glucose 165 H 117 H Calcium 9.4 8.3 L Liver Function 03/21/24 03/22/24 Range/Units 10:07 04:57 Total Bilirubin 1.1 1.0 (0.15-1.2) mg/dL GGT 182 H (8-61) U/L AST 32 26 (0-40) U/L ALT 53 H 46 H (0-41) U/L Alkaline Phosphatase 132 H 103 (40-130) U/L Albumin 4.0 3.2 L (3.5-5.2) g/dL Coags 03/21/24 03/22/24 10:07 04:57 C-Reactive Protein 98.9 H 189.8 H Microbiology 03/21/24 16:58 Blood Culture - Preliminary Blood SPECIMEN COLLECTED 03/21/24 16:51 Blood Culture - Preliminary Blood SPECIMEN COLLECTED Cardiac Studies: 2 No Data to Display
--- NOTE | 2024-03-22 11:23 | P.CONIM_ITS ---
Providers/Reason For Consult 2 Consulting Physician/Specialty*: Dr. Kash Hanson, DO/General Surgery Reason for Consult*: Acute calculous cholecystitis Attending Physician: Real Jasmine MD Primary Care Provider: [facility] History of Present Illness History of Present Illness Parag Gilliam is a 68 year old male who presented to the hospital with a 1 week history of abdominal pain and nausea. He reports that the pain is in his epigastrium and radiates to his back. Palpation and eating make the pain worse. Nothing seems to make the pain better. He has had some constipation over the last few days as well. He had significant nausea with dry heaving but no real emesis. He denies any hematochezia and/or melena. Imaging of the gallbladder, including CT, ultrasound and MRCP show acute calculus cholecystitis with biliary ductal dilatation but no choledocholithiasis. Review of Systems 2 General: Reports: 10 or more systems reviewed and unremarkable except in HPI and below Medications/Allergies Home Medications Medication Instructions Recorded Confirmed Last Taken Type amlodipine 5 mg tablet 5 mg PO DAILY 03/21/24 03/21/24 03/20/24 History cyclobenzaprine 10 mg tablet 10 mg PO BEDTIME 03/21/24 03/21/24 03/20/24 History ezetimibe 10 mg-simvastatin 20 mg 1 tab PO DAILY 03/21/24 03/21/24 03/20/24 History tablet metoprolol tartrate 50 mg tablet 50 mg PO BID 03/21/24 03/21/24 03/21/24 History omeprazole 20 mg capsule,delayed 20 mg PO DAILY 03/21/24 03/21/24 03/20/24 History release Allergies Allergy/AdvReac Type Severity Reaction Status Date / Time No Known Allergies Allergy Verified 03/21/24 10:01 Current Medications Generic Name Dose Route Start Last Admin Trade Name Freq PRN Reason Stop Dose Admin Enoxaparin Sodium 40 mg 03/21/24 16:00 03/21/24 16:36 Enoxaparin 40 Mg/0.4 Ml Syringe SUBCUT 40 mg Q24H GREGG Administration Sodium Chloride 1,000 mls @ 125 mls/hr 03/21/24 16:00 03/22/24 08:49 Sodium Chloride 0.9% IV 125 mls/hr .Q8H GREGG Administration Piperacillin Sod/Tazobactam 50 mls @ 12.5 mls/hr 03/21/24 16:15 03/22/24 08:49 Sod 3.375 gm/ Sodium Chloride IV 12.5 mls/hr Q8H GREGG Administration Protocol Metoprolol Tartrate 50 mg 03/21/24 18:00 03/22/24 08:49 Metoprolol Tartrate 50 Mg Tablet PO 50 mg BID GREGG Administration Morphine Sulfate 4 mg 03/21/24 15:43 03/22/24 08:51 Morphine 4 Mg/Ml Sdv 1 Ml IVP 4 mg Q4H PRN Administration SEVERE PAIN Ondansetron HCl 4 mg 03/21/24 15:43 03/21/24 16:37 Ondansetron 2 Mg/Ml Sdv 2 Ml IVP 4 mg Q6H PRN Administration NAUSEA AND VOMITING Pantoprazole Sodium 40 mg 03/21/24 16:00 03/22/24 04:01 Pantoprazole 40 Mg Sdv IVP 40 mg Q12H GREGG Administration Polyethylene Glycol 17 gm 03/21/24 19:55 03/22/24 08:50 Polyethylene Glycol 3350 Pkt 17 Gm PO Not Given BID GREGG PFSH Acute 2 PFSH: Medical History Hx of supraventricular tachycardia Hx of spinal stenosis Hyperlipidemia HTN (hypertension), benign Surgical History Hx of appendectomy Hx of hernia repair Social History Smoking and tobacco/nicotine status: never used tobacco/nicotine Alcohol intake: never Substance/Drug Use: never Adopted: No Caregiver/support person: No Lives independently: No Household members: spouse Housing: House Marital status: Do you think of yourself as: Straight/Heterosexual Current gender identity: Male Vitals/I&O/Wt Last Vital Signs Temp 97.8 F 03/22/24 08:00 Pulse 110 H 03/22/24 08:00 Resp 16 03/22/24 08:51 BP 143/76 03/22/24 08:00 Pulse Ox 95 03/22/24 08:00 O2 Del Method Room Air 03/22/24 04:00 03/21/24 03/22/24 03/22/24 22:59 06:59 14:59 Intake Total 1050 / 1600 1050 / 2650 1000 / 1000 Balance 1050 / 1600 1050 / 2650 1000 / 1000 Weight last 48 hrs Weight 180 lb 6.4 oz Weight 173 lb Weight 173 lb Physical Exam 2 Narrative: General : Patient is well developed , no acute distress, oriented x3 Head : Normal cephalic, a-traumatic. Ears : Pinnae and external canal are normal. Hearing is normal. Eyes : PERRLA, Sclera and injection are normal. No conjunctival discharge. Nose : Mucous membranes are without erythema. Throat : buccal mucosa is normal, gums are without significant recession or hypertrophy. Lungs : Equal chest rise bilaterally, no use of accessory muscles, trachea is midline. Cor : Rate and rhythm are normal. Abdomen : Soft, ND, tender over epigastrium and right upper quadrant, negative Sellers's, no g/r/m Extremities : No edema, no cyanosis or clubbing, dorsalis pedis pulses are present bilaterally, non-tender to palpation of calves. Upper extremities are normal bilaterally. Back : non-tender to palpation, no CVA tenderness. Neuro : CN II - XII intact, Upper and lower extremities have equal and full strength Data 03/22/24 04:57 03/22/24 04:57 Micro: Microbiology 03/21/24 16:58 Blood Culture - Preliminary Blood SPECIMEN COLLECTED 03/21/24 16:51 Blood Culture - Preliminary Blood SPECIMEN COLLECTED A&P Assessment and plan (1) Acute calculous cholecystitis: Plan Pain control Antibiotics Low-fat diet N.p.o. after midnight Going for surgery tomorrow at 8 AM Laparoscopic cholecystectomy The risks and benefits of the procedure, including but not limited to, bleeding, infection, scar, numbness, pain, damage to surrounding structures, damage to common bile duct requiring additional surgery, conversion to an open procedure, were explained to the patient. He is understanding of the risks and wishes to proceed. Coding Level of Care Code 31129 Diagnoses Acute calculous cholecystitis K80.00
[2024-03-22 11:48] LABS: Glucose Point of Care 99 mg/dL (70-110)
--- NOTE | 2024-03-22 13:09 | P.PN_ITS ---
Subjective 2 Subjective: Patient was seen this morning, no fevers overnight, no chills, no nausea, no vomiting, is passing gas from below, has not had a bowel movement, we discussed his MRCP results, spoke to general surgery, plans on cholecystectomy Vitals/I&O/Wt Last Vital Signs Temp 98.6 F 03/22/24 11:51 Pulse 94 03/22/24 11:51 Resp 16 03/22/24 11:51 BP 153/80 03/22/24 11:51 Pulse Ox 95 03/22/24 11:51 O2 Del Method Room Air 03/22/24 11:51 03/21/24 03/22/24 03/22/24 22:59 06:59 14:59 Intake Total 1050 / 1600 1050 / 2650 1050 / 1050 Balance 1050 / 1600 1050 / 2650 1050 / 1050 Weight last 48 hrs Weight 81.828 kg Weight 78.471 kg Weight 78.471 kg Physical Exam 2 Const: COMMON NORMALS: no acute distress and patient oriented x3 Resp: COMMON NORMALS: normal respiratory effort, No retractions, No use of accessory muscles and clear to auscultation bilaterally AUSCULTATION: clear to auscultation bilaterally Cardio: COMMON NORMALS: regular rate, regular rhythm, S1 normal heart sound present and S2 normal heart sound present RATE: regular rate RHYTHM: r egular rhythm HEART SOUNDS: S1 normal heart sound present and S2 normal heart sound present GI: OTHER: Abdomen soft, distended, good bowel sounds, no guarding, no rebound, rigidity, does have right upper quadrant tenderness Extremity: COMMON NORMALS: no pedal edema Neuro: COMMON NORMALS: patient oriented x3 Psych: COMMON NORMALS: mental status grossly normal Data 03/22/24 04:57 03/22/24 04:57 Micro: Microbiology 03/21/24 16:58 Blood Culture - Preliminary Blood SPECIMEN COLLECTED 03/21/24 16:51 Blood Culture - Preliminary Blood SPECIMEN COLLECTED A&P Assessment and plan (1) Acute cholecystitis: (2) Choledocholithiasis: Plan US/US gall bladder 27351 IMPRESSION: 1. Cholelithiasis with gallbladder wall thickening. Several stones are near the gallbladder neck and could be entrapped. Suspect mild acute cholecystitis. 2. Dilated common bile duct at 1.2 cm. The entire common bile duct is not visualized but highly suspicious for choledocholithiasis. Recommend follow-up with MRCP. ? Concerns for acute cholecystitis with choledocholithiasis ? With concerns for possible biliary obstruction given CBD at 1.2 cm MRCP 1. Cholelithiasis with gallbladder neck stones. 2. Mild dilatation of the extrahepatic biliary tree and to a lesser extent left hepatic lobe biliary ducts but no filling defects suggest CBD stones. Findings can be related to recent passage of CBD stone or ampullary dysfunction. 3. T2 hyperintense left hepatic lesions, not fully characterized without contrast. ? Plan ? Blood cultures ? Serial abdominal exams ? Normal saline at 125 cc an hour ? Zosyn ? Morphine for pain ? Zofran and Reglan for nausea ? Continue home metoprolol ? General Surgery consulted ? Lovenox for DVT prophylaxis ? Full code Spoke to patient, spoke to patient's , spoke to general surgery Attestations 2 Medical Necessity Statement*: Patient requires hospitalization for acute cholecystitis, required IV antibiotics, pain control, therapy, surgical intervention Diagnoses Acute cholecystitis K81.0 Choledocholithiasis K80.50
[2024-03-22 17:00] LABS: Glucose Point of Care 131 mg/dL (70-110)
[2024-03-22] MEDS: enoxaparin 40 mg/0.4 mL Syringe SUBCUT (17:14)
[2024-03-22 21:04] LABS: Glucose Point of Care 122 mg/dL (70-110)
[2024-03-23] VITALS (14 sets, daily range): BP systolic 130–162; BP diastolic 68–92; PULSE 83–111; RESP 14–18; TEMP 36.2–36.7; O2SAT 93–100
[2024-03-23] MEDS: piperacillin-tazobactam 3.375 GM in sodium chloride 0.9% (plus) 50 ML IV (00:03)
[2024-03-23] MEDS: morphine 4 mg/mL SDV 1 mL IVP (00:05)
[2024-03-23] MEDS: sodium chloride 0.9% 1,000 ML 125 ML IV (01:08)
[2024-03-23] MEDS: pantoprazole 40 mg SDV IVP (03:29)
[2024-03-23 04:39] LABS: Basophils % 0.1 %; Eosinophils # 0.2 10^3/uL (0.0-0.8); Eosinophils % 2.3 %; Hematocrit 33.8 % (37-53); Lymphocytes # 1.1 10^3/uL (0.8-4.8); Lymphocytes % 14.4 %; Mean Corpuscular HGB Conc 35.5 g/dL (30-55); Mean Corpuscular Hemoglobin 30.8 pg (27-33); Mean Corpuscular Volume 86.7 fl (82-101); Mean Platelet Volume 8.7 fL (7.4-10.4); Monocytes # 0.5 10^3/uL (0.2-0.9); Monocytes % 6.5 %; Neutrophils # 5.93 10^3/uL (1.8-7.7); Neutrophils % 76.2 %; Nucleated Red Blood Cells % 0 %; Platelet Count 142 10^3/cmm (157-399); Red Cell Distribution Width 13.1 % (12.1-15.1); White Blood Count 7.79 10^3/uL (3.29-11.43)
[2024-03-23 05:07] LABS: Alanine Aminotransferase 32 U/L (0-41); Albumin Level 2.8 g/dL (3.5-5.2); Alkaline Phosphatase 90 U/L (40-130); Anion Gap 14.3 (5-19); Aspartate Amino Transferase 16 U/L (0-40); Blood Urea Nitrogen 6 mg/dL (8-23); C Reactive Protein 219.7 mg/L (0.0-4.9); Calcium 7.8 mg/dL (8.5-10.5); Carbon Dioxide 22 mmol/L (22-29); Chloride 101 mmol/L (98-107); Globulin 2.9 g/dL (1.3-4.6); Glomerular Filtration Rate 133.2 mL/min (90-130); Glucose 95 mg/dL (65-115); Osmolality Calculated 275 mOsm/kg (285-295); Potassium 3.3 mmol/L (3.5-5.1); Sodium 134 mmol/L (136-145); Total Bilirubin 0.8 mg/dL (0.15-1.2); Total Protein 5.7 g/dL (6.6-8.7)
[2024-03-23 05:10] LABS: Procalcitonin 0.35 ng/mL (0-0.5)
[2024-03-23 06:38] LABS: Glucose Point of Care 93 mg/dL (70-110)
--- NOTE | 2024-03-23 07:48 | P.PN_ITS ---
Vitals/I&O/Wt Last Vital Signs Temp 97.4 F L 03/23/24 07:17 Pulse 111 H 03/23/24 07:17 Resp 18 03/23/24 07:17 BP 152/92 03/23/24 07:17 Pulse Ox 98 03/23/24 07:17 O2 Del Method Room Air 03/23/24 07:17 03/22/24 03/23/24 03/23/24 22:59 06:59 14:59 Intake Total 1050 / 2340 1037.5 / 3377.5 Balance 1050 / 2340 1037.5 / 3377.5 Weight last 48 hrs Weight 178 lb 14.4 oz Weight 180 lb 6.4 oz Weight 173 lb Weight 173 lb Data 03/23/24 03:59 03/23/24 03:59 Micro: Microbiology 03/21/24 16:51 Blood Culture - Preliminary Blood NEGATIVE TO DATE 03/21/24 16:58 Blood Culture - Preliminary Blood NEGATIVE TO DATE A&P Assessment and plan (1) Acute calculous cholecystitis: Plan Laparoscopic cholecystectomy The risks and benefits of the procedure, including but not limited to, bleeding, infection, scar, numbness, pain, damage to surrounding structures, damage to common bile duct requiring additional surgery, conversion to an open procedure, were explained to the patient. He is understanding of the risks and wishes to proceed. Attestations 2 Medical Necessity Statement*: home Coding Level of Care Code Acute Code for Chg Fwd Diagnoses Acute calculous cholecystitis K80.00
[2024-03-23] MEDS: lidocaine-epi 2% PF 1:200,000 20 mL SDV XX (08:07)
--- NOTE | 2024-03-23 08:40 | P.OP_ITS ---
Operative Report Date of procedure: March 23, 2024 Surgeon: Kash Hanson DO Brief History: This is a very pleasant 68-year-old gentleman who presented to the hospital with abdominal pain. Imaging of the abdomen showed acute calculus cholecystitis with gallstones lodged in the gallbladder neck. There is also evidence of a passed common bile duct stone as there was ductal dilatation with no current obstruction. Laparoscopic cholecystectomy was indicated. The risks and benefits were explained and documented. Procedure: Preoperative diagnosis: Acute calculous cholecystitis Postoperative diagnosis: Same Procedure performed: Laparoscopic cholecystectomy Surgeon: Dr. Kash Hanson DO Estimated blood loss: 5 mL Specimens: Gallbladder to pathology Complications: None apparent Description of procedure: Patient was wheeled into the operative room and placed on the OR table in a supine position. Abdomen was inspected prepped and draped in usual sterile fashion. Time-out was performed and all present were in agreement. A 15 blade scalp was used to make a stab incision in the left upper quadrant and intra- abdominal insufflation was achieved using a Veress needle. After localizing the tissue incisions were made and a 5 millimeter trocar was placed into the umbilicus as well as 2 in the right upper quadrant. A 12 millimeter trocar was placed in the epigastrium. Gallbladder was grasped and elevated. The gallbladder was significantly inflamed and friable. There were dense omental adhesions to the gallbladder that were taken down both bluntly and sharply. There was a moderate amount of bleeding that was controlled with electrocautery. The triangle of Calot was carefully dissected using blunt dissection and electrocautery until the triangle of Calot clearly identified. The cystic duct was clipped proximally and double clipped distally. The duct was then ligated proximally. The cystic artery was doubly clipped and ligated. The gallbladder was then removed from the liver bed using electrocautery. The gallbladder was removed from the abdomen using an Endo-Catch bag through the epigastric incision. The liver bed was inspected and no bleeding was seen. The abdomen was irrigated and suctioned. All ports removed. Skin was washed and dried. Incisions were closed with 4-0 Monocryl in a subcuticular interrupted fashion. Skin glue was applied. Patient tolerated the procedure well.
--- NOTE | 2024-03-23 09:25 | ANE.PACU2 ---
Inpatient post-anesthesia follow up: Airway intact: Yes Vital signs: Temperature 97.7 F Pulse Rate 96 Respiratory Rate 18 Blood Pressure 162/79 Pulse Oximetry 95 Oxygen Delivery Me thod Room Air Oxygen Flow Rate 8 Fraction of Inspir ed Oxygen Hydration adequate: Yes Nausea and vomiting: No Pain level: 1 Mental status: Baseline
[2024-03-23] MEDS: sodium chloride 0.9% 1,000 ML 30 ML IV (09:37)
[2024-03-23] MEDS: HYDROcodone-acetaminophen 7.5-325 mg Tablet 1 TAB PO (10:42)
--- NOTE | 2024-03-23 10:42 | PM.DCS ---
Discharge Providers Date of Admission: 03/21/24 15:05 Date of Discharge: March 23, 2024 Attending Provider at Admission: Real Jasmine MD Attending Provider at Discharge: Real Jasmine MD Primary Care Provider: SAUD Law Diagnoses at Discharge Discharge Diagnosis (1) Acute calculous cholecystitis: Status: Acute Reason for Visit Reason for Visit: gallbladder- Mtn. View Sapna Pilo sending over Hospital Course Hospital Course Parag Gilliam is a 68 year old male with a past medical history of SVT, history of choledocholithiasis, who presents [facility] for a week history of right upper quadrant pain, fevers, nausea, decreased appetite. When I examined patient, he was on the medical floors, being wheeled up by nursing staff, able to get up out of wheelchair to the bed. Patient tells me that back in 2019, he developed right upper quadrant pain, he got sick, develop fevers, he was told that he had a stone in his biliary tract, he became jaundiced he tells me but it took him so long to follow-up with the surgeon the stone eventually passed, so he never really followed up with general surgery. He tells me that for the last week, he has developed right upper quadrant pain, nausea, fevers, fatigue, malaise, no diarrhea. Increased abdominal distention, increased right upper quadrant pain. He was seen at an outside facility had a CT scan and eventually a right upper quadrant ultrasound and was told that he had a gallbladder infection. However his follow-up with general surgery was April 01, and he could not wait due to persistent right upper quadrant pain, decreased urine output, decreased oral intake, fevers, chills, fatigue, malaise. I had a detailed discussion with patient about his gallbladder ultrasound, findings of gallbladder wall thickening, evidence of cholecystitis and that there are several stones to the gallbladder neck that could be entrapped, also dilated common bile duct at 1.2 cm, common bile duct is not visualized but highly suspicious for choledocholithiasis. Recommendation for MRCP however MRCP cannot be done until tomorrow. Gallbladder ultrasound US/US gall bladder 24025 IMPRESSION: 1. Cholelithiasis with gallbladder wall thickening. Several stones are near the gallbladder neck and could be entrapped. Suspect mild acute cholecystitis. 2. Dilated common bile duct at 1.2 cm. The entire common bile duct is not visualized but highly suspicious for choledocholithiasis. Recommend follow-up with MRCP. ? Concerns for acute cholecystitis with choledocholithiasis ? With concerns for possible biliary obstruction given CBD at 1.2 cm -Underwent MRCP MRCP 1. Cholelithiasis with gallbladder neck stones. 2. Mild dilatation of the extrahepatic biliary tree and to a lesser extent left hepatic lobe biliary ducts but no filling defects suggest CBD stones. Findings can be related to recent passage of CBD stone or ampullary dysfunction. 3. T2 hyperintense left hepatic lesions, not fully characterized without contrast. -Managed with IV fluids, broad-spectrum antibiotic therapy, pain control, general surgery was consulted -As there was no significant radiographic evidence of CBD stones, general surgery proceeded to cholecystectomy -Patient was status post acute calculus cholecystitis status post laparoscopic cholecystectomy, tolerated procedure well -Will be discharged on Augmentin, hydrocodone pain control, instructions to drink plenty of IV fluids, follow-up with primary care Patient was found to have type 2 diabetes mellitus, A1c 6.8, discharged with metformin 500 twice daily, insulin glucometer, follow-up with primary care provider as outpatient repeat liver function and creatinine in 1 week, Patient was found to have T2 hyperintense left hepatic lesion, referral has been sent to GI in [place] for further workup -Please monitor your blood sugars closely -Monitor your blood sugars 3 times daily as after meals -Please record your blood sugars, and a blood sugar log -If your blood sugar is greater than 500 go to the emergency room -If your blood sugar is less than 60 or at anytime you feel lightheaded or dizzy or diaphoretic or have chest palpitations check your blood sugar, and eat a hard candy or drink orange juice and go immediately to the emergency room -Remember hypoglycemia kills, so if his blood sugar is less than 60 we have to increase it by taking in a sugary meal such as a hard candy or orange juice and go to the emergency room -If you have any questions please call us where here to help -For your type 2 diabetes I am discharging on metformin 500 mg twice daily -Please follow-up with primary care provider -I have also sent a glucometer to your pharmacy -Please have your primary care provider recheck your liver function, and your kidney function in 1 week -Please hydrate well -Your MRI of your liver showed a T2 hyperintense left hepatic lesion, this should be followed up by your primary care provider or GI in [place] Physical Exam Const: COMMON NORMALS: no acute distress and patient oriented x3 Resp: COMMON NORMALS: normal respiratory effort, No retractions, No use of accessory muscles and clear to auscultation bilaterally AUSCULTATION: clear to auscultation bilaterally Cardio: COMMON NORMALS: regular rate, regular rhythm, S1 normal heart sound present and S2 normal heart sound present RATE: regular rate RHYTHM: regular rhythm HEART SOUNDS: S1 normal heart sound present and S2 normal heart sound present GI: COMMON NORMALS: Normal to inspection, nondistended, normoactive bowel sounds present and non-tender Extremity: COMMON NORMALS: no pedal edema Neuro: COMMON NORMALS: patient oriented x3 Psych: COMMON NORMALS: mental status grossly normal Discharge Data Studies Completed and Pending Completed Studies During Hospitalization Category Date Time Status MR MRCP 59070 Stat MRI 03/22/24 09:00 Completed US gall bladder 38735 Stat Ultrasound 03/21/24 11:27 Completed Pending at discharge Category Date Time Status Blood Culture Stat Lab 03/21/24 16:58 Results C Reactive Protein AM LABS Lab 03/24/24 04:00 Ordered Complete Blood Count w/Auto AM LABS Lab 03/24/24 04:00 Ordered Complete Blood Count w/Auto AM LABS Lab 03/25/24 04:00 Ordered Comprehensive Metabolic Panel AM LABS Lab 03/24/24 04:00 Ordered Comprehensive Metabolic Panel AM LABS Lab 03/25/24 04:00 Ordered Procalcitonin AM LABS Lab 03/24/24 04:00 Ordered Urinalysis Stat Lab 03/21/24 09:30 Ordered Pathology: Surgical [PTH] Routine Pth 03/23/24 08:12 Ordered Radiology Impressions Gallbladder Ultrasound 03/21/24 11:27 IMPRESSION: 1. Cholelithiasis with gallbladder wall thickening. Several stones are near the gallbladder neck and could be entrapped. Suspect mild acute cholecystitis. 2. Dilated common bile duct at 1.2 cm. The entire common bile duct is not visualized but highly suspicious for choledocholithiasis. Recommend follow-up with MRCP. Cholangiopancreatography MRI 03/22/24 09:00 IMPRESSION: 1. Cholelithiasis with gallbladder neck stones. 2. Mild dilatation of the extrahepatic biliary tree and to a lesser extent left hepatic lobe biliary ducts but no filling defects suggest CBD stones. Findings can be related to recent passage of CBD stone or ampullary dysfunction. 3. T2 hyperintense left hepatic lesions, not fully characterized without contrast. Laboratory Results WBC 7.79 10^3/uL (3.29-11.43) 03/23/24 03:59 RBC 3.90 10^6/uL (3.85-5.65) 03/23/24 03:59 Hgb 12.00 g/dL (11.27-16.99) 03/23/24 03:59 Hct 33.8 % (37-53) L 03/23/24 03:59 MCV 86.7 fl (82-101) 03/23/24 03:59 MCH 30.8 pg (27-33) 03/23/24 03:59 MCHC 35.5 g/dL (30-55) D 03/23/24 03:59 RDW 13.1 % (12.1-15.1) 03/23/24 03:59 Plt Count 142 10^3/cmm (157-399) L 03/23/24 03:59 MPV 8.7 fL (7.4-10.4) 03/23/24 03:59 Neut % (Auto) 76.2 % 03/23/24 03:59 Lymph % (Auto) 14.4 % 03/23/24 03:59 [place] % (Auto) 6.5 % 03/23/24 03:59 Eos % (Auto) 2.3 % 03/23/24 03:59 Baso % (Auto) 0.1 % 03/23/24 03:59 Neut # (Auto) 5.93 10^3/uL (1.8-7.7) 03/23/24 03:59 Lymph # (Auto) 1.1 10^3/uL (0.8-4.8) 03/23/24 03:59 [place] # (Auto) 0.5 10^3/uL (0.2-0.9) 03/23/24 03:59 Eos # (Auto) 0.2 10^3/uL (0.0-0.8) 03/23/24 03:59 Baso # (Auto) 0.0 10^3/uL (0.0-0.1) 03/23/24 03:59 Nucleated RBC % (auto) 0 % 03/23/24 03:59 Nucleated RBCs # 0.0 /100WBC 03/23/24 03:59 Sodium 134 mmol/L (136-145) L 03/23/24 03:59 Potassium 3.3 mmol/L (3.5-5.1) L 03/23/24 03:59 Chloride 101 mmol/L (98-107) 03/23/24 03:59 Carbon Dioxide 22 mmol/L (22-29) 03/23/24 03:59 Anion Gap 14.3 (5-19) 03/23/24 03:59 BUN 6 mg/dL (8-23) L 03/23/24 03:59 Creatinine 0.6 mg/dL (0.7-1.2) L 03/23/24 03:59 GFR Calculation 133.2 mL/min (90-130) H 03/23/24 03:59 Glucose 95 mg/dL (65-115) 03/23/24 03:59 POC Glucose 93 mg/dL (70-110) 03/23/24 06:29 Estimat Average Glucose 148 03/21/24 10:07 Hemoglobin A1c 6.8 % (4.0-6.0) H 03/21/24 10:07 Calculated Osmolality 275 mOsm/kg (285-295) L 03/23/24 03:59 Lactic Acid 1.4 mmol/L (0.5-2.2) 03/21/24 16:51 Calcium 7.8 mg/dL (8.5-10.5) L 03/23/24 03:59 Total Bilirubin 0.8 mg/dL (0.15-1.2) 03/23/24 03:59 GGT 182 U/L (8-61) H 03/21/24 10:07 AST 16 U/L (0-40) 03/23/24 03:59 ALT 32 U/L (0-41) 03/23/24 03:59 Alkaline Phosphatase 90 U/L (40-130) 03/23/24 03:59 C-Reactive Protein 219.7 mg/L (0.0-4.9) H 03/23/24 03:59 Total Protein 5.7 g/dL (6.6-8.7) L 03/23/24 03:59 Albumin 2.8 g/dL (3.5-5.2) L 03/23/24 03:59 Globulin 2.9 g/dL (1.3-4.6) 03/23/24 03:59 Lipase 35 U/L (13-60) 03/21/24 10:07 Lipase 36 U/L (13-60) 03/21/24 10:07 Procalcitonin 0.35 ng/mL (0-0.5) 03/23/24 03:59 TSH 1.90 uIU/mL (0.27-4.20) 03/21/24 10:07 Vitals Last Vital Signs Temp 97.7 F 03/23/24 09:40 Pulse 95 03/23/24 09:40 Resp 18 03/23/24 09:40 BP 146/73 03/23/24 09:40 Pulse Ox 96 03/23/24 09:40 O2 Del Method Room Air 03/23/24 09:40 O2 Flow Rate 8 03/23/24 09:05 Discharge Plan Discharge Patient Disposition: Home Condition: Stable Prescriptions: New hydrocodone-acetaminophen 7.5-325 mg tablet 1 tab PO Q6H PRN (Reason: pain) Qty: 20 0RF (DME) glucometer testing kit See Rx Instructions .Route .MEDSUPPLY Qty: 1 0RF Rx Instructions: glucometer testing kit, check bs tid lancets#100 strips#100 amoxicillin-pot clavulanate 875-125 mg tablet 1 tab PO BID Qty: 14 0RF metformin 500 mg tablet 500 mg PO BID 30 Days Qty: 60 0RF docusate sodium [Colace] 100 mg capsule 100 mg PO BID Qty: 14 0RF polyethylene glycol 3350 [Miralax] 17 gram/dose powder 17 g PO DAILY Qty: 119 0RF Continued cyclobenzaprine 10 mg tablet 10 mg PO BEDTIME amlodipine 5 mg tablet 5 mg PO DAILY metoprolol tartrate 50 mg tablet 50 mg PO BID omeprazole 20 mg capsule,delayed release(DR/EC) 20 mg PO DAILY ezetimibe-simvastatin 10-20 mg tablet 1 tab PO DAILY Discharge Orders: Discharge Order (Routine); Ordered 03/23/24 Ordered By: Real Jasmine Referrals: Deniz Scott MD [Referring] - 1 month (left hepatic lesion) Kash Hanson DO [Physician] - 2 weeks Liz Daigle FNP [Primary Care Provider] - Maximino Fuller MD [Physician] - 1 week Discharge Diet: Cardiac Discharge Activity: Resume usual activity Patient Instructions: Type 2 Diabetes in Adults: New Diagnosis (DC), Acute Wound Care (DC), What to Do if Your Blood Sugar is Low (DC), Opioid Safety, Post Anesthesia Care Activity Restrictions/Additional Instructions: -Please monitor your blood sugars closely -Monitor your blood sugars 3 times daily as after meals -Please record your blood sugars, and a blood sugar log -If your blood sugar is greater than 500 go to the emergency room -If your blood sugar is less than 60 or at anytime you feel lightheaded or dizzy or diaphoretic or have chest palpitations check your blood sugar, and eat a hard candy or drink orange juice and go immediately to the emergency room -Remember hypoglycemia kills, so if his blood sugar is less than 60 we have to increase it by taking in a sugary meal such as a hard candy or orange juice and go to the emergency room -If you have any questions please call us where here to help -For your type 2 diabetes I am discharging on metformin 500 mg twice daily -Please follow-up with primary care provider -I have also sent a glucometer to your pharmacy -Please have your primary care provider recheck your liver function, and your kidney function in 1 week -Please hydrate well -Your MRI of your liver showed a T2 hyperintense left hepatic lesion, this should be followed up by your primary care provider as outpatient for repeat CT scan, consider referral to hepatology -Please use hydrocodone sparingly for pain, do not drive or operate heavy machinery or drink while taking medication Discharge Attestations Time Spent in Discharge Care*: greater than 30 min Quality Metrics Clinical Quality Measures [ No reported AMI, CVA or VTE this stay] Coding Level of Care Code 21667 Total time (in minutes) for Discharge: 45 Diagnoses Acute calculous cholecystitis K80.00
[2024-03-23 11:17] LABS: Glucose Point of Care 122 mg/dL (70-110)
== END 2024-03-23 12:13 | disposition home or self-care (01) | DRG 419 ==
LOC: ER 10:26 → MEDSURG 15:05
PROVIDERS: Physician Assistant; Surgery; Admitting Provider Family Medicine; Emergency Provider Family Medicine; PCP Nurse Practitioner Family; Visit Provider Family Medicine
PROC: 0FT44ZZ Resection of Gallbladder, Percutaneous Endoscopic Approach (ICD-10-PCS; CPT 47562; principal; 2024-03-23 08:00)
DX: K80.62 Calculus of gallbladder and bile duct with acute cholecystitis without obstruction (principal); E78.5 Hyperlipidemia, unspecified; E11.9 Type 2 diabetes mellitus without complications; I10 Essential (primary) hypertension; Z79.899 Other long term (current) drug therapy
CPT/HCPCS: 36415; 36416; 74181; 76705; 80053; 82962; 82977; 83036; 83605; 83690; 84145; 84443; 85025; 86140; 87040; 88304; 96372; J1100; J1650; J2270; J2405; J2470; J2543; J2704; J3010; J3490; J7030; J7040

== ENCOUNTER → 2024-04-07 13:01 | Outpatient (BNVA) | payer MEDICARE, OTHER, SELFPAY | PROVIDERS: PCP Nurse Practitioner Family; Visit Provider Surgery | DX: Z90.49 Acquired absence of other specified parts of digestive tract (principal); Z98.890 Other specified postprocedural states | CPT/HCPCS: 99024 ==

== ENCOUNTER → 2024-04-24 11:32 | Outpatient (BNVA) | payer MEDICARE, OTHER, SELFPAY | PROVIDERS: PCP Nurse Practitioner Family; Visit Provider Nurse Practitioner Family | DX: I10 Essential (primary) hypertension (principal); R53.83 Other fatigue; G51.0 Bell's palsy | CPT/HCPCS: 80053; 80061; 85025; 86140 ==

== ENCOUNTER → 2024-08-15 08:49 | Outpatient (BNVA) | payer MEDICARE, OTHER, SELFPAY | PROVIDERS: PCP Nurse Practitioner Family; Visit Provider Nurse Practitioner Family | DX: E78.2 Mixed hyperlipidemia (principal); E11.9 Type 2 diabetes mellitus without complications; I10 Essential (primary) hypertension | CPT/HCPCS: 80053; 80061; 83036 ==

== ENCOUNTER → 2025-05-04 08:56 | Outpatient (BNVA) | payer MEDICARE, OTHER, SELFPAY | PROVIDERS: PCP Nurse Practitioner Family; Visit Provider Nurse Practitioner Family | DX: Z12.5 Encounter for screening for malignant neoplasm of prostate (principal); I10 Essential (primary) hypertension; E11.9 Type 2 diabetes mellitus without complications | CPT/HCPCS: 80053; 80061; 83036; 84443; G0103 ==